=== PATIENT | female | born 1995 | race African-American/Black ===

== ENCOUNTER 2019-04-13 21:09 | Emergency (ER) | payer MEDICAID, OTHER ==
[~2019-04-13] VITALS: Ht 167.6 cm; Wt 55.0 kg
[~2019-04-13 21:09] MED LIST: PREN-88 PO
[2019-04-13 21:58] VITALS: BP 103/65
== END 2019-04-14 01:30 | disposition left against medical advice (07) ==
LOC: ER 21:09
DX: Z53.21 Procedure and treatment not carried out due to patient leaving prior to being seen by health care provider (principal)

== ENCOUNTER 2019-04-14 13:14 | Emergency (ER) | payer MEDICAID ==
[~2019-04-14] VITALS: Ht 170.2 cm; Wt 57.0 kg
[2019-04-14 15:45] LABS: CLARITY URINE CLEAR (CLEAR); COLOR URINE YELLOW (YELLOW); KETONES URINE NEGATIVE (NEGATIVE); LEUKOCYTE ESTERASE URINE NEGATIVE (NEGATIVE); NITRITE URINE NEGATIVE (NEGATIVE); OCCULT BLOOD URINE NEGATIVE (NEGATIVE); PH URINE 7.5 (4.5-8.0); PROTEIN URINE NEGATIVE (NEGATIVE); SPECIFIC GRAVITY URINE 1.012 (1.005-1.030)
[2019-04-14 15:59] VITALS: BP 112/68
== END 2019-04-14 16:59 | disposition home or self-care (01) ==
LOC: ER 13:14
DX: N93.9 Abnormal uterine and vaginal bleeding, unspecified (principal); M54.5 Low back pain; R30.0 Dysuria; Z98.890 Other specified postprocedural states
CPT/HCPCS: 81025; 99283

== ENCOUNTER 2019-12-25 05:42 | Emergency (ER) | payer MEDICAID ==
[~2019-12-25] VITALS: Ht 165.1 cm; Wt 61.0 kg
[2019-12-25 06:20] LABS: BASOPHILS % 0.4 % (0.0-2.0); HEMATOCRIT. 43.2 % (36.0-48.0); HEMOGLOBIN. 14.8 g/dL (12.0-16.0); LYMPHOCYTES % 9.7 % (20.0-50.0); MEAN CORPUSCULAR HEMOGLOBIN 32.6 pg (28.0-32.0); MEAN CORPUSCULAR VOLUME 94.9 fL (81.0-99.0); MEAN PLATELET VOLUME 8.1 fl (7.4-10.4); MONOCYTES % 5.8 % (2.0-8.0); NEUTROPHILS % 84.1 % (40.0-76.0); PLATELET 169 x1000/uL (130-400); RED BLOOD CELL COUNT 4.55 mill/uL (4.2-5.4); RED CELL DISTRIBUTION WIDTH 11.8 % (11.6-14.6)
[2019-12-25 06:27] LABS: CHLORIDE 107 mEq/L (98-107)
[2019-12-25 06:32] LABS: ETHANOL BLOOD < 10 mg/dL
[2019-12-25 06:37] LABS: HCG SCREEN NEGATIVE
[2019-12-25] MEDS ORDERED: ONDANSETRON HCL 4MG/2ML INJ IV ONE (06:45)
[2019-12-25] MEDS ORDERED: SODIUM CHLORIDE 0.9% 1,000 ML IV ONE (06:45)
[2019-12-25] MEDS ORDERED: ACETAMINOPHEN 325MG TABLET PO ONE (10:30)
[2019-12-25] MEDS ORDERED: IBUPROFEN 400MG TABLET PO ONE (10:30)
[2019-12-25 11:57] VITALS: BP 95/60
== END 2019-12-25 12:08 | disposition home or self-care (01) ==
LOC: ER 05:42
DX: T39.1X2A Poisoning by 4-Aminophenol derivatives, intentional self-harm, initial encounter (principal); Z98.890 Other specified postprocedural states; Y92.018 Other place in single-family (private) house as the place of occurrence of the external cause
CPT/HCPCS: 36415; 70450; 80053; 80307; 80320; 80329; 84703; 85025; 93005; 96361; 96374; 99284; J2405; J7030; G0480

== ENCOUNTER 2021-08-08 21:06 | Inpatient (IN) | payer MEDICAID, OTHER ==
[~2021-08-08] VITALS: Ht 166.4 cm; Wt 64.4 kg
[2021-08-08] MEDS ORDERED: PREN1TAB78 PO (21:35)
[2021-08-08] MEDS ORDERED: LACTATED RINGERS 500 ML IV ONE (22:00)
[2021-08-08 22:21] LABS: CLARITY URINE CLEAR (CLEAR); COLOR URINE DARK YELLOW (YELLOW); KETONES URINE TRACE (NEGATIVE); LEUKOCYTE ESTERASE URINE TRACE (NEGATIVE); NITRITE URINE NEGATIVE (NEGATIVE); OCCULT BLOOD URINE NEGATIVE (NEGATIVE); PROTEIN URINE TRACE (NEGATIVE); SPECIFIC GRAVITY URINE 1.028 (1.005-1.030)
[2021-08-08] MEDS ORDERED: TERBUTALINE SULFATE 1MG/ML VIAL SUBCUT PRN (23:00)
[2021-08-08] MEDS ORDERED: MAGNESIUM 4 G PREMIX 100 ML IV ONE (23:00)
[2021-08-08] MEDS ORDERED: NALOXONE HCL 0.4 MG/ML 1ML VIAL IM PRN (23:15)
[2021-08-08] MEDS: MAGNESIUM 20 G PREMIX (L & D) 500 ML IV SCH (23:53)
[2021-08-09] MEDS ORDERED: CEFAZOLIN 2,000 MG in DEXT 5% WATER 100 ML IV SCH
[2021-08-09 05:16] LABS: BASOPHILS % 0.2 % (0.0-2.0); EOSINOPHILS % 0.8 % (0.0-5.0); HEMATOCRIT. 37.1 % (36.0-48.0); HEMOGLOBIN. 12.8 g/dL (12.0-16.0); LYMPHOCYTES % 25.6 % (20.0-50.0); MEAN CORPUSCULAR HEMOGLOBIN 33.5 pg (28.0-32.0); MEAN CORPUSCULAR VOLUME 97.1 fL (81.0-99.0); MEAN PLATELET VOLUME 8.4 fl (7.4-10.4); MONOCYTES % 6.8 % (2.0-8.0); NEUTROPHILS % 66.6 % (40.0-76.0); PLATELET 166 x1000/uL (130-400); RED BLOOD CELL COUNT 3.82 mill/uL (4.2-5.4); RED CELL DISTRIBUTION WIDTH 12.3 % (11.6-14.6)
[2021-08-09] MEDS ORDERED: CEFAZOLIN 1000MG PREMIX 50 ML IV SCH (06:00)
[2021-08-09 06:01] LABS: HEPATITIS B SURFACE ANTIGEN NEGATIVE
[2021-08-09] MEDS ORDERED: LACTATED RINGERS 1,000 ML IV SCH (07:30)
[2021-08-09 08:28] LABS: INR 0.9; PROTHROMBIN TIME 9.7 sec (9.6-11.0)
[2021-08-09 10:10] VITALS: BP 99/57
[2021-08-09] MEDS: MAGNESIUM 20 G PREMIX (L & D) 500 ML IV SCH (10:10)
[2021-08-09] MEDS: BETAMETHASONE ACET/BETAMET 30 MG/5 ML VIAL IM SCH ×2 (12:03)
== END 2021-08-09 12:25 | disposition home or self-care (01) | DRG 566 ==
LOC: OBSVTOIN 21:06 → 8 EST LDRP 21:06
PROVIDERS: ADMIT Obstetrics & Gynecology Obstetrics; ATTEND Obstetrics & Gynecology Obstetrics
DX: O60.03 Preterm labor without delivery, third trimester (principal); O23.03 Infections of kidney in pregnancy, third trimester; O34.211 Maternal care for low transverse scar from previous cesarean delivery; Z3A.32 32 weeks gestation of pregnancy
CPT/HCPCS: 36415; 59412; 81003; 83735; 85025; 86592; 86703; 86762; 86850; 86900; 87340; 96360; 96361; 96365; 96372; 99281; J0690; J0702; J3105; J3475; J7060; J7120; A4315

== ENCOUNTER 2021-09-30 13:47 | Inpatient (IN) | payer OTHER ==
[~2021-09-30] VITALS: Ht 165.1 cm; Wt 68.9 kg
[~2021-09-30 13:47] MED LIST changes: +PREN1TAB78 PO
[2021-09-30] MEDS ORDERED: METHYLERGONOVINE MALEATE 0.2 MG/ML IM PRN (15:00)
[2021-09-30] MEDS ORDERED: MISOPROSTOL 100MCG TABLET VG SCH (15:00)
[2021-09-30] MEDS ORDERED: NALOXONE HCL 0.4 MG/ML 1ML VIAL IM PRN (15:00)
[2021-09-30] MEDS ORDERED: BUTORPHANOL TARTRATE 2 MG/ML VIAL IV PRN (15:00)
[2021-09-30] MEDS ORDERED: CARBOPROST TROMETHAMINE 250 MCG/ML AMPUL IM PRN (15:00)
[2021-09-30] MEDS ORDERED: LIDOCAINE HCL 1% 20ML VIAL (Pyxis) INJ INFIL SCH (15:00)
[2021-09-30] MEDS ORDERED: PENICILLIN G POTASSIUM 2.5 MMU in DEXTROSE 5% WATER 50 ML IV SCH (16:00)
[2021-09-30] MEDS: LACTATED RINGERS 1,000 ML IV SCH ×2 (16:15→23:46)
[2021-09-30 16:41] LABS: BASOPHILS % 0.2 % (0.0-2.0); EOSINOPHILS % 0.4 % (0.0-5.0); HEMATOCRIT. 36.1 % (36.0-48.0); HEMOGLOBIN. 12.7 g/dL (12.0-16.0); LYMPHOCYTES % 12.2 % (20.0-50.0); MEAN CORPUSCULAR HEMOGLOBIN 34.1 pg (28.0-32.0); MEAN CORPUSCULAR VOLUME 97.1 fL (81.0-99.0); MEAN PLATELET VOLUME 8.7 fl (7.4-10.4); MONOCYTES % 5.5 % (2.0-8.0); NEUTROPHILS % 81.7 % (40.0-76.0); PLATELET 151 x1000/uL (130-400); RED BLOOD CELL COUNT 3.72 mill/uL (4.2-5.4); RED CELL DISTRIBUTION WIDTH 12.5 % (11.6-14.6)
[2021-09-30 16:48] LABS: INR 0.9; PARTIAL THROMBOPLASTIN TIME 29.7 sec (23.4-31.0); PROTHROMBIN TIME 10.1 sec (9.6-11.0)
[2021-09-30 16:50] LABS: CLARITY URINE CLOUDY (CLEAR); COLOR URINE YELLOW (YELLOW); KETONES URINE NEGATIVE (NEGATIVE); LEUKOCYTE ESTERASE URINE 2+ (NEGATIVE); NITRITE URINE NEGATIVE (NEGATIVE); OCCULT BLOOD URINE NEGATIVE (NEGATIVE); PH URINE 7.5 (4.5-8.0); PROTEIN URINE NEGATIVE (NEGATIVE); SPECIFIC GRAVITY URINE 1.011 (1.005-1.030)
[2021-09-30 16:56] LABS: *AMPHETAMINES SCREEN URINE NEGATIVE (NEGATIVE); *BARBITURATES SCREEN URINE NEGATIVE (NEGATIVE); *BENZODIAZEPINES SCREEN URINE NEGATIVE (NEGATIVE); *COCAINE SCREEN URINE NEGATIVE (NEGATIVE)
[2021-09-30 16:57] LABS: CANNABINOID URINE SCREEN NEGATIVE (NEGATIVE); METHADONE URINE SCREEN NEGATIVE (NEGATIVE); OPIATES URINE SCREEN NEGATIVE (NEGATIVE); PHENCYCLIDINE URINE SCREEN NEGATIVE (NEGATIVE)
[2021-09-30] MEDS ORDERED: PENICILLIN G POTASSIUM 5 MMU in DEXT 5% WATER 100 ML IV NR (17:00)
[2021-09-30 17:30] LABS: HEPATITIS B SURFACE ANTIGEN NEGATIVE
[2021-09-30] MEDS ORDERED: ROPIVACAINE HCL/PF EPIDURAL 200 ML EP SCH (17:45)
[2021-09-30] MEDS ORDERED: MINERAL OIL 30ML BOTTLE PO NR (18:45)
[2021-09-30] MEDS: PENICILLIN G POTASSIUM 2.5 MMU in DEXTROSE 5% WATER 50 ML IV SCH (21:37)
[2021-10-01] MEDS: PENICILLIN G POTASSIUM 2.5 MMU in DEXTROSE 5% WATER 50 ML IV SCH ×2 (01:36→05:29)
[2021-10-01] MEDS: LACTATED RINGERS 1,000 ML IV SCH ×3 (06:08→11:45)
[2021-10-01] MEDS: DEXT 5%/LR + PITOCIN 20UNITS/L 1,000 ML IV SCH ×3 (08:26→17:30)
[2021-10-01] MEDS ORDERED: CEFAZOLIN SODIUM 1000MG/VIAL ONE (11:16)
[2021-10-01] MEDS ORDERED: PHENYLEPHRINE HCL 10 MG/ML 1ML (IV VIAL) IV ONE (11:17)
[2021-10-01] MEDS ORDERED: EPHEDRINE SULFATE 50MG/ML VIAL ONE (11:17)
[2021-10-01] MEDS ORDERED: MORPHINE SULFATE/PF 1MG/ML 10ML AMP ONE (11:45)
[2021-10-01] MEDS ORDERED: ALBUMIN HUMAN 12.5G/250ML (5%) IV NR (13:00)
[2021-10-01] MEDS ORDERED: OXYTOCIN 10 UNITS/ML 1ML ONE (13:25)
[2021-10-01] MEDS ORDERED: DEXT 5%/LACTATED RINGERS 1,000 ML IV SCH (13:30)
[2021-10-01] MEDS ORDERED: RHO(D) IMMUNE GLOBULIN 300 MCG/SYR IM PRN (13:30)
[2021-10-01 15:30] VITALS: BP 107/60
[2021-10-01 15:45] VITALS: BP 103/50
[2021-10-01 16:30] VITALS: BP 105/51
[2021-10-01] MEDS ORDERED: NALOXONE HCL 0.4 MG/ML 1ML VIAL IV PRN (16:30)
[2021-10-01] MEDS ORDERED: DIPHENHYDRAMINE 50MG/ML VIAL IM PRN (17:00)
[2021-10-01] MEDS ORDERED: DIPHENHYDRAMINE 50MG/ML VIAL IV PRN (17:02)
[2021-10-01] MEDS: ONDANSETRON HCL 4MG/2ML INJ IV PRN ×2 (17:30→21:33)
[2021-10-01 20:00] VITALS: BP 112/55
[2021-10-01] MEDS: DOCUSATE SODIUM 100MG CAPSULE PO SCH ×2 (21:00→21:33)
[2021-10-01] MEDS: KETOROLAC 30MG/ML VIAL IV PRN (21:34)
[2021-10-02] VITALS: BP 110/50
[2021-10-02] MEDS: KETOROLAC 30MG/ML VIAL IV PRN ×2 (04:38→10:24)
[2021-10-02 05:08] VITALS: BP 99/56
[2021-10-02 07:30] VITALS: BP 107/58
[2021-10-02 07:32] LABS: BASOPHILS % 0.1 % (0.0-2.0); EOSINOPHILS % 0.1 % (0.0-5.0); HEMATOCRIT. 30.9 % (36.0-48.0); HEMOGLOBIN. 10.8 g/dL (12.0-16.0); LYMPHOCYTES % 12.6 % (20.0-50.0); MEAN CORPUSCULAR HEMOGLOBIN 34.4 pg (28.0-32.0); MEAN PLATELET VOLUME 8.9 fl (7.4-10.4); MONOCYTES % 6.9 % (2.0-8.0); NEUTROPHILS % 80.3 % (40.0-76.0); PLATELET 122 x1000/uL (130-400); RED BLOOD CELL COUNT 3.15 mill/uL (4.2-5.4); RED CELL DISTRIBUTION WIDTH 12.5 % (11.6-14.6)
[2021-10-02] MEDS: ACETAMINOPHEN WITH CODEINE 300/30MG TABLET PO PRN ×2 (14:55→21:08)
[2021-10-02 17:13] VITALS: BP 98/54
[2021-10-02 20:00] VITALS: BP 98/59
[2021-10-02] MEDS: DOCUSATE SODIUM 100MG CAPSULE PO SCH (21:00)
[2021-10-03] VITALS: BP 99/59
[2021-10-03 04:17] VITALS: BP 103/56
[2021-10-03] MEDS: ACETAMINOPHEN WITH CODEINE 300/30MG TABLET PO PRN ×3 (06:09→19:49)
[2021-10-03 07:30] VITALS: BP 100/48
[2021-10-03] MEDS: DOCUSATE SODIUM 100MG CAPSULE PO SCH (12:56)
[2021-10-03] MEDS ORDERED: SUMATRIPTAN SUCCINATE 25MG TABLET PO NR (16:00)
[2021-10-03] MEDS ORDERED: NALOXONE HCL 0.4MG/ML VIAL IV PRN (16:00)
[2021-10-03 16:08] VITALS: BP 97/54
[2021-10-03 20:00] VITALS: BP 99/68
[2021-10-04] VITALS: BP 103/53
[2021-10-04] MEDS: ACETAMINOPHEN WITH CODEINE 300/30MG TABLET PO PRN ×3 (00:12→10:36)
[2021-10-04 04:20] VITALS: BP 118/67
[2021-10-04 08:00] VITALS: BP 102/60
[2021-10-04 10:36] VITALS: BP 118/67
== END 2021-10-04 14:00 | disposition home or self-care (01) | DRG 540 ==
LOC: OBSVTOIN 13:47 → 8 EST LDRP 13:47 → 8EST 10-01 16:51
PROVIDERS: ADMIT Obstetrics & Gynecology Obstetrics; ATTEND Obstetrics & Gynecology Obstetrics
PROC: 10D00Z1 Extraction of Products of Conception, Low, Open Approach (ICD-10-PCS; principal; 2021-10-01)
PROC: 3E0234Z Introduction of Serum, Toxoid and Vaccine into Muscle, Percutaneous Approach (ICD-10-PCS; 2021-10-01)
DX: O34.211 Maternal care for low transverse scar from previous cesarean delivery (principal); O75.89 Other specified complications of labor and delivery; R51.9 Headache, unspecified; Z20.822 Contact with and (suspected) exposure to COVID-19; Z37.0 Single live birth; Z23 Encounter for immunization; Z3A.40 40 weeks gestation of pregnancy
CPT/HCPCS: 36415; 80305; 81003; 85025; 86592; 86703; 86762; 86850; 86870; 86886; 86900; 86920; 87340; 87426; 88307; 90384; 99281; J0595; J0690; J1885; J2274; J2370; J2405; J2540; J2590; J2795; J3490; J7060; J7120; J7121; P9041; A4315

== ENCOUNTER 2022-09-21 11:03 | Inpatient (IN) | payer BC, OTHER ==
[~2022-09-21] VITALS: Ht 167.6 cm; Wt 68.9 kg
[2022-09-21] MEDS ORDERED: FENTANYL CITRATE/PF 50MCG/ML 2ML VIAL ONE (11:11)
[2022-09-21] MEDS ORDERED: ONDANSETRON HCL 4MG/2ML INJ ONE (11:12)
[2022-09-21] MEDS ORDERED: CEFAZOLIN SODIUM 1000MG/VIAL ONE (11:12)
[2022-09-21] MEDS ORDERED: MORPHINE SULFATE/PF 1MG/ML 10ML AMP ONE (11:12)
[2022-09-21] MEDS ORDERED: PHENYLEPHRINE HCL 10 MG/ML 1ML (IV VIAL) IV ONE (11:12)
[2022-09-21] MEDS ORDERED: OXYTOCIN 10 UNITS/ML 1ML ONE ×2 (11:12→16:16)
[2022-09-21] MEDS ORDERED: DIPHENHYDRAMINE 50MG/ML VIAL ONE (11:13)
[2022-09-21 14:14] LABS: BASOPHILS % 0.2 % (0.0-2.0); EOSINOPHILS % 0.5 % (0.0-5.0); HEMATOCRIT. 36.8 % (36.0-48.0); HEMOGLOBIN. 12.5 g/dL (12.0-16.0); LYMPHOCYTES % 13.9 % (20.0-50.0); MEAN CORPUSCULAR VOLUME 96.7 fL (81.0-99.0); MONOCYTES % 5.1 % (2.0-8.0); NEUTROPHILS % 80.3 % (40.0-76.0); PLATELET 148 x1000/uL (130-400); RED CELL DISTRIBUTION WIDTH 12.3 % (11.6-14.6)
[2022-09-21] MEDS: LACTATED RINGERS 1,000 ML IV SCH ×3 (14:15→23:46)
[2022-09-21 14:33] LABS: INR 0.9; PARTIAL THROMBOPLASTIN TIME 27.5 sec (23.4-31.0)
[2022-09-21 15:06] LABS: HEPATITIS B SURFACE ANTIGEN NEGATIVE
[2022-09-21 15:10] LABS: COLOR URINE YELLOW (YELLOW)
[2022-09-21 15:11] LABS: CLARITY URINE SL HAZY (CLEAR); KETONES URINE 3+ (NEGATIVE); LEUKOCYTE ESTERASE URINE TRACE (NEGATIVE); NITRITE URINE NEGATIVE (NEGATIVE); OCCULT BLOOD URINE NEGATIVE (NEGATIVE); PROTEIN URINE TRACE (NEGATIVE); UROBILINOGEN URINE 0.2 E.U./dL (0.2-1.0)
[2022-09-21] MEDS ORDERED: CLINDAMYCIN 900 MG PREMIX 50 ML IV ONE (15:19)
[2022-09-21 15:26] LABS: *AMPHETAMINES SCREEN URINE NEGATIVE (NEGATIVE); *BARBITURATES SCREEN URINE NEGATIVE (NEGATIVE); *BENZODIAZEPINES SCREEN URINE NEGATIVE (NEGATIVE); *COCAINE SCREEN URINE NEGATIVE (NEGATIVE); CANNABINOID URINE SCREEN NEGATIVE (NEGATIVE); METHADONE URINE SCREEN NEGATIVE (NEGATIVE); OPIATES URINE SCREEN NEGATIVE (NEGATIVE); PHENCYCLIDINE URINE SCREEN NEGATIVE (NEGATIVE)
[2022-09-21] MEDS ORDERED: KETOROLAC 60MG/2ML VIAL IM ONE (16:03)
[2022-09-21] MEDS ORDERED: BUTORPHANOL TARTRATE 2 MG/ML VIAL IV PRN (16:15)
[2022-09-21] MEDS ORDERED: DIPHENHYDRAMINE 50MG/ML VIAL IV PRN (16:15)
[2022-09-21] MEDS ORDERED: NALOXONE HCL 0.4 MG/ML 1ML VIAL IV PRN (16:15)
[2022-09-21] MEDS ORDERED: RHO(D) IMMUNE GLOBULIN 300 MCG/SYR IM PRN (17:15)
[2022-09-21] MEDS ORDERED: DEXT 5%/LACTATED RINGERS 1,000 ML IV SCH (17:15)
[2022-09-21] MEDS ORDERED: ACETAMINOPHEN WITH CODEINE 300/30MG TABLET PO PRN (17:15)
[2022-09-21 18:30] VITALS: BP 103/58
[2022-09-21] MEDS ORDERED: ONDANSETRON HCL 4MG/2ML INJ IV PRN (19:45)
[2022-09-21 20:00] VITALS: BP 112/54
[2022-09-21 23:45] VITALS: BP 99/56
[2022-09-22 03:30] VITALS: BP 102/55
[2022-09-22] MEDS: KETOROLAC 30MG/ML VIAL IV SCH ×3 (04:34→16:47)
[2022-09-22 08:00] VITALS: BP 95/53
[2022-09-22] MEDS ORDERED: NALOXONE HCL 0.4MG/ML VIAL IV PRN (10:45)
[2022-09-22 12:00] VITALS: BP 101/46
[2022-09-22 16:00] VITALS: BP 98/55
[2022-09-22 20:00] VITALS: BP 95/54
[2022-09-22] MEDS ORDERED: DOCUSATE SODIUM 100MG CAPSULE PO SCH (21:00)
[2022-09-22] MEDS: ACETAMINOPHEN WITH CODEINE 300/30MG TABLET PO PRN (21:27)
[2022-09-23] MEDS ORDERED: DIPHENHYDRAMINE 25MG CAPSULE PO PRN (01:00)
[2022-09-23 04:00] VITALS: BP 96/50
[2022-09-23 08:00] VITALS: BP 92/46
[2022-09-23 09:08] VITALS: BP 96/50
[2022-09-23] MEDS: ACETAMINOPHEN WITH CODEINE 300/30MG TABLET PO PRN (09:08)
== END 2022-09-23 13:35 | disposition home or self-care (01) | DRG 788 ==
LOC: 8EST 11:03 → 8 EST A/PP 11:03 → INTOOBSV 11:03 → OBSVTOIN 11:03 → UNDOADMOB 11:03 → 8EST 16:38
PROVIDERS: ADMIT Obstetrics & Gynecology Obstetrics; ATTEND Obstetrics & Gynecology Obstetrics
PROC: 10D00Z1 Extraction of Products of Conception, Low, Open Approach (ICD-10-PCS; principal; 2022-09-21)
PROC: 3E0234Z Introduction of Serum, Toxoid and Vaccine into Muscle, Percutaneous Approach (ICD-10-PCS; 2022-09-22)
DX: O34.211 Maternal care for low transverse scar from previous cesarean delivery (principal); Z37.0 Single live birth; Z3A.40 40 weeks gestation of pregnancy; Z20.822 Contact with and (suspected) exposure to COVID-19; Z67.41 Type O blood, Rh negative
CPT/HCPCS: 36415; 80305; 81003; 85025; 86592; 86703; 86762; 86850; 86870; 86886; 86900; 86920; 87340; 87426; 88307; 90384; J0690; J1200; J1885; J2274; J2370; J2405; J3010; J3490; J7120; J7121; Q0163; A4315; J2791